=== PATIENT | male | born 1980 | race Caucasian/White ===

== ENCOUNTER 2021-08-11 06:16 | Outpatient (CLI) | payer OTHER ==
--- NOTE | 2021-08-11 12:00 | MRI Report ---
PROCEDURE: Cervical Spine W/O INDICATIONS: PARESTHESIA TECHNIQUE: Noncontrast sagittal T1 spin echo and T2 fast spin echo, sagittal STIR, foraminal oblique sagittal T2 fast spin echo, and axial gradient echo or T2 fast spin echo through the cervical spine. COMPARISON: None. FINDINGS: Image quality: Motion artifact is noted. Alignment and Curvature: There is normal bony alignment. Bone Marrow: Marrow demonstrates normal overall signal. Spinal Cord: Visualized spinal cord has normal size and signal. No cerebellar tonsillar herniation. Paraspinous Soft Tissues: No paravertebral masses. Prevertebral soft tissues are normal in thicknes s. C2-C3: The disc height and disc signal are well preserved. Mild disc osteophyte complex is seen, wit h a mild central disc osteophyte protrusion. No neural foraminal narrowing is seen. Mild to moderate central canal narrowing is seen, with mild flattening of the ventral spinal cord, as on series 601 im age 25. C3-C4: The disc height and disc signal are well preserved. Moderate disc osteophyte complex is see n. Moderate facet hypertrophy is seen. Moderate bilateral neural foraminal narrowing is seen. M ild central canal narrowing is seen. C4-C5: The disc height and disc signal are well preserved. Moderate disc osteophyte complex is seen . There is mild right-sided and moderate left-sided facet hypertrophy. There is at least moderate ri ght-sided and moderate left-sided neuroforaminal narrowing. Minimal central canal narrowing is seen. C5-C6: The disc height is well-preserved. There is loss of disc signal seen. Moderate disc osteophyt e complex is seen, with a central/right disc osteophyte protrusion, as on series 601 image 13. Moder ate facet hypertrophy is seen. There is moderate to severe bilateral neuroforaminal narrowing seen, right worse than left. Moderate to severe central canal narrowing is also seen, with associated vent ral cord flattening. C6-C7: The disc height is well-preserved. There is loss of disc signal seen. Mild to moderate disc o steophyte complex is seen, which is eccentric to the left. Uncovertebral joint hypertrophy is seen a t this level. Mild to moderate bilateral facet hypertrophy can be seen. There is moderate to severe bilateral neuroforaminal narrowing, left worse than right. Mild to moderate central canal narrowing i s seen. Associated mass effect is seen upon the ventral spinal cord. C7-T1: The disc height and disc signal are well preserved. Minimal disc osteophyte complex is seen. Mild to moderate facet hypertrophy is seen. Moderate bilateral neuroforaminal narrowing can be seen, left worse than right. The central canal is widely patent. IMPRESSION: Multiple levels of cervical spine degenerative change can be seen, which are overall worst at the C5- C6 level. Reviewed by: Shaggy Cunningham MD on 08/11/2021 10:58 AM [facility] Approved by: Shaggy Cunningham MD on 08/11/2021 10:58 AM [facility] Station ID: [id number]
== END 2021-08-11 06:17 | disposition home or self-care (01) ==
LOC: DI 06:16
DX: R20.2 Paresthesia of skin (principal); M50.21 Other cervical disc displacement, high cervical region; M47.812 Spondylosis without myelopathy or radiculopathy, cervical region; M50.323 Other cervical disc degeneration at C6-C7 level; M48.02 Spinal stenosis, cervical region

== ENCOUNTER 2021-11-14 07:47 | Outpatient (CLI) | payer OTHER ==
--- NOTE | 2021-11-14 16:13 | MRI Report ---
PROCEDURE: Elbow LT W/O INDICATIONS: PAIN IN LEFT ELBOW TECHNIQUE: Noncontrast coronal proton density fast spin echo and T2 fast spin echo with fat saturation, axial an d sagittal T1 spin echo and T2 fast spin echo with fat saturation through the elbow. COMPARISON: None. FINDINGS: Image quality: Excellent. Lateral structures: The lateral ulnar collateral ligament and radial collateral ligament both appear thickened near their lateral epicondylar insertion. The overlying common extensor tendon also appea rs thickened with intrasubstance T2 hyperintense signal at its proximal insertion. Medial structures: The ulnar collateral ligament appears intact. The overlying common flexor tendon appears attenuated with overlying soft tissue edema. The ulnar nerve appears normal in size and sig nal within the cubital tunnel. Anterior structures: The biceps and brachialis tendons both appear intact as they insert onto the pr oximal radius and ulna, respectively. No bicipitoradial bursal fluid. The median and radial neurova scular bundles appear normal; no focal muscle atrophy to suggest nerve impingement. Posterior structures: The triceps tendon appears intact. No olecranon bursal fluid. Mild dorsal so ft tissue swelling is seen. Bone and cartilage: No bone marrow contusions or fractures. No osteochondral injuries. IMPRESSION: 1. Mild dorsal soft tissue swelling adjacent to olecranon. No fluid distention of olecranon bursa to suggest bursitis. 2. Suggestion of lateral epicondylitis with tendinosis and low-grade partial-thickness tear involving , and common extensor tendon origin on lateral epicondyles and underlying sprain/low-grade partial th ickness tear involving proximal lateral collateral ligaments. 3. Suggestion of tendinosis and low-grade partial-thickness tear involving common flexor tendon origi n. Underlying medial collateral ligaments are grossly intact. 4. No marrow edema. No fracture or dislocation. No significant joint effusion. Reviewed by: Flavio Weaver MD on 11/14/2021 4:11 PM PDT Approved by: Flavio Weaver MD on 11/14/2021 4:11 PM PDT Station ID: [id number]
== END 2021-11-14 07:48 | disposition home or self-care (01) ==
LOC: DI 07:47
DX: M25.522 Pain in left elbow (principal); R22.32 Localized swelling, mass and lump, left upper limb